=== PATIENT | female | born 1955 | race Asian ===

== ENCOUNTER 2020-02-14 10:52 | Emergency (ER) | payer OTHER ==
[~2020-02-14] VITALS: Ht 162.6 cm; Wt 81.8 kg
[~2020-02-14 10:52] MED LIST: ATOR20TA86 PO; CALC-15 PO; FLUT16H NASAL; LORA10TA7 PO; LOSA25TA21 PO; METF-960 PO
[2020-02-14] MEDS ORDERED: KETOROLAC TROMETHAMINE 60 MG/2 ML VIAL IM ONE (11:30)
[2020-02-14 15:13] VITALS: BP 149/82
== END 2020-02-14 15:15 | disposition home or self-care (01) ==
LOC: EMS 10:53
DX: S42.291A Other displaced fracture of upper end of right humerus, initial encounter for closed fracture (principal); E11.9 Type 2 diabetes mellitus without complications; Z79.899 Other long term (current) drug therapy; W01.0XXA Fall on same level from slipping, tripping and stumbling without subsequent striking against object, initial encounter; Y93.89 Activity, other specified; Y92.098 Other place in other non-institutional residence as the place of occurrence of the external cause; Y99.8 Other external cause status
CPT/HCPCS: 73060; 73080; 73130; 73200; 82962; 96372; 99285; J1885